=== PATIENT | male | born 1945 | race Caucasian/White ===

== ENCOUNTER 2021-07-28 06:39 | Emergency (ER) | payer MEDICARE ==
[~2021-07-28] VITALS: Ht 172.7 cm; Wt 83.9 kg
[2021-07-28 07:25] LABS: BASOPHILS % (AUTO) 0.1 % (0.0-5.0); EOSINOPHILS % (AUTO) 0.3 % (0.0-8.0); HEMATOCRIT 40.1 % (42-54); LYMPHOCYTES % (AUTO) 7.1 % (21.0-51.0); MEAN CORPUSCULAR HEMOGLOBIN 30.6 pg (27.0-33.0); MEAN CORPUSCULAR HGB CONC 34.9 g/dL (32.0-36.0); MEAN CORPUSCULAR VOLUME 87.6 fL (79-99); MONOCYTES % (AUTO) 9.8 % (3.0-13.0); NEUTROPHILS % (AUTO) 82.4 % (40.0-77.0); PLATELET COUNT (AUTO) 185 K/uL (130-400); RED BLOOD CELL COUNT(AUTO) 4.58 MIL/uL (4.50-6.20); RED CELL DISTRIBUTION WIDTH 12.8 % (11.0-15.5); WHITE BLOOD COUNT (AUTO) 9.5 K/uL (4.8-10.8)
[2021-07-28 07:30] LABS: APPEARANCE,URINE Cloudy (CLEAR); BILIRUBIN,URINE Negative (NEGATIVE); COLOR,URINE Orange (YELLOW); GLUCOSE, URINE (UA) Negative (NEGATIVE); KETONES,URINE Negative (NEGATIVE); LEUKOCYTE ESTERASE ,URINE Large (NEGATIVE); NITRATE,URINE Negative (NEGATIVE); OCCULT BLOOD,URINE Large (NEGATIVE); PROTEIN,URINE POS 2+ mg/dL (NEGATIVE)
[2021-07-28 07:34] LABS: ALBUMIN 3.5 g/dL (3.5-5.0); CREATININE 2.3 mg/dL (0.5-1.5)
[2021-07-28 07:41] LABS: BILIRUBIN,TOTAL 1.5 mg/dL (0.2-1.0)
[2021-07-28 07:41] LABS: BACTERIA,URINE Many /HPF (None Seen); SQUAMOUS EPITHELIAL CELL,UR None Seen /HPF (0-2)
[2021-07-28 07:43] LABS: POTASSIUM 2.8 mmol/L (3.5-5.1)
[2021-07-28] MEDS ORDERED: KETOROLAC 15MG/ML VIAL (15MG/ML) ONE (08:26)
[2021-07-28] MEDS ORDERED: KCL 20 MEQ ERTAB PO ONE ×2 (08:26→08:30)
[2021-07-28] MEDS ORDERED: KETOROLAC 15MG/ML VIAL (15MG/ML) IV ONE (08:30)
[2021-07-28] MEDS ORDERED: ACET1TAB25 PO (09:24)
[2021-07-28] MEDS ORDERED: IBUP-2070 PO (09:24)
[2021-07-28 09:40] VITALS: BP 106/70
== END 2021-07-28 09:37 | disposition home or self-care (01) ==
LOC: EDH 06:39
DX: N28.89 Other specified disorders of kidney and ureter (principal); E87.6 Hypokalemia; I10 Essential (primary) hypertension; J44.9 Chronic obstructive pulmonary disease, unspecified; F17.200 Nicotine dependence, unspecified, uncomplicated; Z88.8 Allergy status to other drugs, medicaments and biological substances; Z79.899 Other long term (current) drug therapy; Z79.1 Long term (current) use of non-steroidal anti-inflammatories (NSAID); Z91.041 Radiographic dye allergy status
CPT/HCPCS: 36415; 80053; 81001; 85025; 87088; 96374; 99283; J1885; 96372